=== PATIENT | female | born 1990 | race Caucasian/White ===

== ENCOUNTER 2018-08-28 22:42 | Emergency (ER) | payer MEDICAID ==
[~2018-08-28] VITALS: Ht 154.9 cm; Wt 108.4 kg
[2018-08-28 22:48] VITALS: Ht 154.9 cm; Wt 108.4 kg
[2018-08-28 23:27] VITALS: BP 122/68
== END 2018-08-28 23:27 | disposition home or self-care (01) ==
LOC: ED 22:42
DX: S40.211A Abrasion of right shoulder, initial encounter (principal); S09.8XXA Other specified injuries of head, initial encounter; G43.909 Migraine, unspecified, not intractable, without status migrainosus; W20.8XXA Other cause of strike by thrown, projected or falling object, initial encounter; Y93.89 Activity, other specified; Y92.89 Other specified places as the place of occurrence of the external cause; Y99.8 Other external cause status